=== PATIENT | female | born 1995 | race Caucasian/White ===

== ENCOUNTER → 2024-10-07 09:59 | Outpatient (REF) | payer OTHER, SELFPAY | LOC: HWRAD 09:59 | PROVIDERS: ATTENDING PHYSICIAN Obstetrics & Gynecology; FAMILY PHYSICIAN Physician Assistant Medical | DX: R31.9 Hematuria, unspecified (principal) | CPT/HCPCS: 76770 ==

== ENCOUNTER → 2025-02-24 11:56 | Outpatient (REF) | payer OTHER, SELFPAY | LOC: PNTC 11:56 | PROVIDERS: ATTENDING PHYSICIAN Obstetrics & Gynecology | DX: O36.8190 Decreased fetal movements, unspecified trimester, not applicable or unspecified (principal); O36.8399 Maternal care for abnormalities of the fetal heart rate or rhythm, unspecified trimester, other fetus | CPT/HCPCS: 59025; 76818 ==

== ENCOUNTER 2025-03-02 19:09 | Inpatient (IN) | payer OTHER, SELFPAY ==
[2025-03-02 19:41] VITALS: BP 125/74; BMI 32.6
[2025-03-02 20:00] LABS: % Basophils 0.3 % (0-2); % Eosinophils 0.4 % (0-6); % Immature Granulocytes 0.8 % (0-0.5); % Lymphocytes 24.9 % (20.5-51.1); % Monocytes 10.6 % (1.7-9.3); Absolute Eosinophils 0.1 10^3/uL (0-0.7); Absolute Immature Granulocytes 0.1 10^3/uL (0-0.05); Absolute Lymphocytes 2.8 10^3/uL (1.2-3.4); Absolute Monocytes 1.2 10^3/uL (0.1-0.6); Absolute Neutrophils 7.2 10^3/uL (1.4-6.5); Hematocrit 33.5 % (37.0-47.0); Hemoglobin 11.5 g/dL (12.0-16.0); Mean Corp Hgb Conc. 34.3 g/dL (33.0-37.0); Mean Corpuscular Hgb 29.8 pg (27.0-31.0); Mean Corpuscular Volume 86.8 fL (81.0-99.0); Mean Platelet Volume 10.9 fL (7.4-10.4); Nucleated Red Blood Cells % 0 %; Platelet Count 214 10^3/uL (130-400); Red Blood Cell Count 3.86 10^6/uL (4.20-5.40); Red Cell Dist. Width 13.4 % (11.5-14.5); White Blood Cell Count 11.4 10^3/uL (4.8-10.8)
[2025-03-02] MEDS: CYTOTEC 25 MICROGRAM VAG (20:03)
[2025-03-02] MEDS: LR 1000 IV (22:16)
[2025-03-02] MEDS: PENICILLIN 110 UNITS IV (23:39)
[2025-03-03] MEDS: LR 1000 IV (00:59)
[2025-03-03] MEDS: CYTOTEC 50 MICROGRAM PO (01:58)
[2025-03-03] MEDS: PENICILLIN 55 UNITS IV ×5 (03:27→19:39)
[2025-03-03] MEDS: PITOCIN 30 UNITS/NSS 500 ML IV (09:10)
[2025-03-03] MEDS: FENTANYL/BUPIVACAINE 100 EPIDURAL (19:21)
[2025-03-03] MEDS: SUBLIMAZE 100 MCG EPIDURAL (19:21)
[2025-03-03] MEDS: CYTOTEC PO (20:19)
[2025-03-03] MEDS: BICITRA 30 ML PO (21:03)
[2025-03-03] MEDS: TYLENOL 1000 MG PO (21:03)
[2025-03-03] MEDS: ANCEF 10 IV (21:06)
[2025-03-03] MEDS: ZITHROMAX INFUSION 250 IV (21:06)
[2025-03-03 21:51] LABS: Cord ABG Comment CORD BLOOD
[2025-03-03 21:55] LABS: B.E. Cord ABG -4.3 mMOL/L; PCO2 Cord ABG 49 mmHg; PO2 Cord ABG 10 mmHg; pH Cord ABG 7.28
[2025-03-03 21:59] LABS: B.E. Cord ABG -5.3 mMOL/L; PCO2 Cord ABG 48 mmHg; PO2 Cord ABG 12 mmHg; pH Cord ABG 7.27
--- NOTE | 2025-03-04 00:11 | HPS.HSE ---
Family Physician
-
Family Physician: INTERVIEWE UNKNOWN - PT NOT
Chief Complaint
-
induction of labor
History of Present Illness
HPI: Patient is a 30yo @40.6 who presented to L&D for elective induction of labor. She had no complaints.
complications:
- none
PMHx: denies
Meds: PNV
Surghx: wisdom teeth
All: vancomycin (rash)
Famhx: mother w/ HTN
Socialhx: denies tobacco, etoh or illicit drug use
labs: O+, Ab neg, rubella imm, RPR reactive 1:1 FT- ABSneg, 3rd tri RPR NR, HBsAg neg, HIV neg, HCV neg, 1hr 68, GBS positive
Medical History
Past Medical History
Past Medical History: Reports None
Past Surgical History: Reports Other
Additional Past Surgical History:
wisdom teeth
Social History
Tobacco: Non-smoker
Alcohol: None
Drug: None
Family History
Family History: Not pertinent
Allergies / Home Medications
Allergies reflects when Allergies were last updated in [facility].
Home Medications with original date entered in [facility]
Allergy/Medication List:
All: vancomycin- rash
Meds: PNV
Review of Systems
-
A 12 point ROS was completed and negative except as noted: Yes
Physical Exam
Vital Signs
Vital Signs
Temp Pulse Resp BP
98.3 F 69 18 125/74
03/02/25 19:41 03/02/25 19:41 03/02/25 19:41 03/02/25 19:41
Physical Exam
General: Well Developed
HEENT: NormoCephalic
Respiratory: Non Labored Respirations
Cardiac: Regular Rhythm
GI: Other (gravid)
Skin: Warm and Dry
Neuro: Awake and Alert
Psych: Calm
Impression/Plan
-
IMPRESSION:
Patient is a 30yo @40.6 who presented for elective induction of labor, now plan for primary section for non-reassuring heart tones
PLAN:
- Patient is s/p Cytotec x2 doses. She ruptured for blood tinged fluid at 2255. She was then started on Pitocin. Pitocin was intermittently stopped and restarted for category 2 tracing with periods of minimal variability and intermittent late
decelerations. She had made minimal change and was remote from delivery. Primary section recommended for nonreassuring heart tones. Risks, benefits and alternatives including bleeding, infection, damage to surrounding structures and
need for future operations discussed. Consents signed. Ancef 2g and azithromycin 500mg IV ordered. Anesthesia notified.
--- NOTE | 2025-03-04 00:20 | OR.RPT ---
Operative Report
Operative Report
Date of procedure: 03/03/2025
Preop diagnosis: IUP @40.6, nonreassuring heart tones, remote from delivery
Postop diagnosis: same, meconium stained amniotic fluid
Procedure: Primary low transverse section
Surgeon: Lenard
Anesthesia: Dr. Guillaume, epidural
QBL: 400mL
Findings: Viable male born at 2137 with Apgars 8/9 with vacuum assist, meconium stained amniotic fluid, loose nuchal x1, normal appearing bilateral fallopian tubes and ovaries. Placenta intact, sent to pathology
Complications: none
Indication: Patient is a 30yo @40.6 who presented to Labor and Delivery on 03/02 for elective induction of labor. Her cervix was closed. She was given 2 doses of Cytotec overnight. She spontaneously ruptured for blood tinged fluid at 2255. In the
morning, she was examined and found to be 1cm. She was started on Pitocin. There were intermittently periods of minimal variability and intermittent late decelerations. Pitocin was turned off secondary to a category 2 tracing but was restarted. She
progressed to 2cm and forebag was ruptured for blood tinged fluid. Pitocin was continued. heart rate tracing then had a variable deceleration followed by late decelerations with minimal variability. Recommendation made for primary
section for non-reassuring heart tones, remote from delivery. Risks, benefits and alternatives discussed and consents signed. Anesthesia notified.
Procedure: Patient was taken to the operating room where epidural was bolused and found to be adequate. 2g of Ancef and 500mg azithromycin were given for antibiotic prophylaxis. The abdomen was prepped with ChloraPrep. The patient was draped in the
normal sterile fashion. She was placed in the dorsal supine position with a left lateral tilt. A Pfannenstiel incision was made with a 10 blade and carried down to the fascia with a scalpel. Hemostasis achieved with Bovie. The fascia was incised and
dissected laterally with Johnson scissors. The superior aspect of the fascia was grasped with Denise clamps. The underlying rectus fascia was sharply dissected with Johnson scissors. In a similar fashion the inferior aspect of the fascia was elevated with
Denise clamps and the rectus muscle was dissected off with Johnson scissors. The rectus muscles were down the midline to the level of the pubic symphysis with manual dissection. The peritoneum was bluntly entered and extended using manual
traction.
Edwards retractor and bladder blade were placed revealing good visualization of the bladder. The vesicouterine peritoneum was identified. A thin lower uterine segment was noted. The lower uterine segment was incised with a scalpel. Meconium
stained amniotic fluid noted at entry (previously was leaking blood tinged fluid). The uterine incision was extended bluntly with lateral and upward traction.
The fetus was in cephalic presentation. The head was elevated out of the pelvis with special attention paid to avoid using the uterine incision as a fulcrum. Gentle fundal pressure was applied one the head was brought to the incision. There was
difficulty delivering the head despite adequate space. Vacuum was applied and the head delivered with one pull and no pop offs. There was a loose nuchal that was reduced at the level of the hysterotomy. The rest of the infant delivered
without difficulty. Delayed cord clamping was performed. The was handed off to the wire bender hand. IV oxytocin was started to facilitate uterine contractions. The placenta was delivered with fundal massage and gentle downward traction. The
uterus was exteriorized. Allis clamps were placed at the apices of the hysterotomy. The inside of the uterus was wiped with a lap sponge to assure complete removal of placental membranes. Fundal massage was performed and uterus was firm. The uterine
incision was closed with 0 Vicryl in a running locked fashion. A horizontal imbricating stitch was done on the hysterotomy with 0 Vicryl. There was oozing along the hysterotomy and figure of eights were placed with 2-0 and 0 Vicryl to achieve
hemostasis. The hysterotomy was inspected and noted to be hemostatic. The uterus was placed back in the abdomen. Blood clots and fluid were wiped out of the abdomen and pelvis with moist laparotomy sponges. The hysterotomy was examined and there was
bleeding inferior to the hysterotomy on the left side. Multiple figure of eights were placed with 2-0 Vicryl to achieve hemostasis. Surgicel were placed over the hysterotomy. The hysterotomy was inspected again and was hemostatic.
The rectus muscles were inspected and were hemostatic. The fascial layer was closed in a running continuous fashion using 0 Vicryl. The subcutaneous tissue was copiously irrigated and any small bleeding vessels were cauterized with Bovie cautery.
The subcutaneous tissue was reapproximated in a running continuous fashion with 2-0 Plain. The skin was closed with 4-0 Vicryl in a subcuticular fashion and covered with skin glue. The patient tolerated the procedure well. All sponge and instrument
counts were correct times two. The patient was taken to the recovery room in stable condition. Guerrero catheter was draining clear urine at the end of the procedure.
[2025-03-04] MEDS: TYLENOL 650 MG PO (02:45)
[2025-03-04] MEDS: TORADOL 15 MG IV ×4 (04:03→22:07)
[2025-03-04 05:24] LABS: Hemoglobin 10.8 g/dL (12.0-16.0); Mean Corp Hgb Conc. 33.8 g/dL (33.0-37.0); Mean Corpuscular Hgb 29.2 pg (27.0-31.0); Mean Corpuscular Volume 86.5 fL (81.0-99.0); Mean Platelet Volume 10.8 fL (7.4-10.4); Platelet Count 194 10^3/uL (130-400); Red Cell Dist. Width 13.5 % (11.5-14.5); White Blood Cell Count 19.1 10^3/uL (4.8-10.8)
[2025-03-04] MEDS: PRENATAL PLUS 1 TABLET PO (09:37)
[2025-03-04] MEDS: SENOKOT-S 1 TABLET PO (09:37)
[2025-03-04] MEDS: MYLICON 80 MG PO ×2 (09:37→22:09)
[2025-03-04] MEDS: PERCOCET 5/325 1 TABLET PO ×2 (09:37→15:30)
--- NOTE | 2025-03-04 19:03 | W.PN.ANS.POP ---
Anesthesia Post Operative
- Anesthesia Post Op Note
Vital Signs Stable-See Nursing Note: Yes
Airway Patent: Yes
Adequate Pain Control: Yes
Change in Mental Status: No
Current Postoperative Nausea & Vomiting: No
Anesthesia Complications: No
General Anesthetic Recall: No
Unplanned Admission: No
Post Op Hydration Adequate: Yes
[2025-03-04] MEDS: PERCOCET 5/325 2 TABLET PO (22:08)
[2025-03-05] MEDS: TORADOL 15 MG IV (03:45)
[2025-03-05] MEDS: PERCOCET 5/325 1 TABLET PO ×2 (07:30→22:17)
[2025-03-05] MEDS: PRENATAL PLUS 1 TABLET PO (07:30)
[2025-03-05] MEDS: SENOKOT-S 1 TABLET PO (07:30)
[2025-03-05] MEDS: MYLICON 80 MG PO ×2 (07:30→22:17)
[2025-03-05] MEDS: TYLENOL 650 MG PO ×2 (11:53→17:52)
[2025-03-05] MEDS: MOTRIN 600 MG PO ×2 (11:54→17:52)
[2025-03-06] MEDS: TYLENOL 650 MG PO ×2 (03:00→09:04)
[2025-03-06] MEDS: MOTRIN 600 MG PO ×2 (03:00→09:03)
[2025-03-06] MEDS: PRENATAL PLUS 1 TABLET PO (09:02)
[2025-03-06] MEDS: SENOKOT-S 1 TABLET PO (09:02)
[2025-03-06 11:38] LABS: Syphilis/T. pallidum Ab Reflex Negative (Negative)
--- NOTE | 2025-03-06 12:20 | W.DS.TRANS ---
DC Summary - [employer]
-
Discharge Instructions:
Discharge Diagnosis/Procedures section delivery
Instructions:
Stand-Alone Forms: LDRP Delivery
Changes to Home Medications: No
Discharge Medications:
DC Medications w/original date entered in [facility]
prenat.vits,shahrzad,[id number]-[id number] 1 tab PO DAILY Supplement 03/02/25
acetaminophen 325 mg tablet 650 mg (2 x 325 mg) PO Q4HPRN PRN mild pain #0 tabs 03/06/25
calcium carbonate (Calcium Antacid) 400 mg (2 x 200 mg calcium (500 mg)) PO Q6HPRN PRN indigestion #0 tabs 03/06/25
ibuprofen 600 mg tablet 600 mg PO Q6HPRN PRN cramps #30 tabs 03/06/25
oxycodone-acetaminophen 5 mg-325 mg tablet 1 tab PO Q4HPRN PRN moderate pain #5 tabs 03/06/25
sennosides 8.6 mg-docusate sodium 50 mg tablet 1 tab PO DAILYPRN PRN constipation #0 tabs 03/06/25
simethicone 80 mg chewable tablet 80 mg PO Q6H PRN gas #0 tabs 03/06/25
simethicone 80 mg chewable tablet 80 mg PO TIDPRN PRN flatulence #0 tabs 03/06/25
Home Medication Changes
Pending Results: No
Total time spent discharging patient (in min): 20
== END 2025-03-06 19:02 | disposition home or self-care (01) | DRG 788 ==
LOC: LDRP 19:09
PROVIDERS: Student in an Organized Health Care Education/Training Program; ADMITTING PHYSICIAN Obstetrics & Gynecology
PROC: 3E0P7VZ Introduction of Hormone into Female Reproductive, Via Natural or Artificial Opening (ICD-10-PCS; 2025-03-02)
PROC: 4A1HXCZ Monitoring of Products of Conception, Cardiac Rate, External Approach (ICD-10-PCS; 2025-03-02)
PROC: 10D00Z1 Extraction of Products of Conception, Low, Open Approach (ICD-10-PCS; 2025-03-03)
DX: O48.0 Post-term pregnancy (principal); O69.81X0 Labor and delivery complicated by cord around neck, without compression, not applicable or unspecified; O76 Abnormality in fetal heart rate and rhythm complicating labor and delivery; O77.0 Labor and delivery complicated by meconium in amniotic fluid; O99.824 Streptococcus B carrier state complicating childbirth; Z37.0 Single live birth; Z3A.40 40 weeks gestation of pregnancy; Z88.1 Allergy status to other antibiotic agents
CPT/HCPCS: 88307; 82803; 85025; 85027; 86780; 86850; 86900; 86901